=== PATIENT | male | born 1965 | race Hispanic/Latino ===

== ENCOUNTER 2016-10-08 14:33 | Emergency (ER) | payer OTHER ==
[~2016-10-08] VITALS: Ht 167.6 cm; Wt 74.8 kg
[2016-10-08] MEDS ORDERED: IBUPROFEN600 MG PO (17:14)
[2016-10-08] MEDS ORDERED: NORCO 5-325 TA1 EACH PO (17:14)
== END 2016-10-08 17:29 | disposition home or self-care (01) ==
LOC: ED 14:33
DX: S50.02XA Contusion of left elbow, initial encounter (principal); S50.812A Abrasion of left forearm, initial encounter; W23.0XXA Caught, crushed, jammed, or pinched between moving objects, initial encounter
CPT/HCPCS: 73080; 99283

== ENCOUNTER 2018-11-29 09:24 | Emergency (ER) | payer OTHER ==
[~2018-11-29] VITALS: Ht 167.6 cm; Wt 74.8 kg
[~2018-11-29 09:24] MED LIST: IBUPROFEN600 MG PO; NORCO 5-325 TA1 EACH PO
--- OUTSIDE RECORDS SUMMARY | 2018-11-29 09:28 | XMS ---
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 Alejo has no Care Guidelines for this patient. Alexei VISIT COUNT (12 MO.) 1 [facility] TOTAL 1 NOTE: Visits indicate total known visits. ED/C VISIT TRACKING (12 MO.) 11/29/2018 09:26 [facility] OR TYPE: Emergency COMPLAINT: - PULLED MUSCLES LIFTING BOARDS INPATIENT VISIT TRACKING (12 MO.) No inpatient visits to display in this time frame [id number]
[2018-11-29] MEDS ORDERED: INDOMETHACIN50 MG PO (09:41)
[2018-11-29] MEDS ORDERED: CYCLOBENZAPRINE10 MG PO (09:41)
== END 2018-11-29 10:15 | disposition home or self-care (01) ==
LOC: ED 09:24
DX: R10.30 Lower abdominal pain, unspecified (principal); Z87.891 Personal history of nicotine dependence
CPT/HCPCS: 99283